=== PATIENT | male | born 1935 | race Caucasian/White ===

== ENCOUNTER 2023-03-09 23:58 | Inpatient (IN) ==
[2023-03-09] MEDS ORDERED: IOPAMIDOL 100 ML BOTTLE IV ONE (23:59)
[2023-03-10 00:51] LABS: POC Calcium, Ionized 1.23 (1.16-1.32); POC Creatinine 1.1 (0.6-1.2)
--- NOTE | 2023-03-10 00:58 | Emergency Department Note ---
HPI General Chief complaint: Abdominal Pain Stated complaint: abdom Time Seen by Provider: 03/10/23 00:00 Source: patient Mode of arrival: ambulatory Limitations: no limitations History of Present Illness HPI Narrative: The patient is an 87-year-old male with a history of CAD, BPH, AAA, HEATHER on CPAP, pancreatitis, appendectomy, right inguinal hernia repair, partial colectomy, SVT, TIAs, GERD, HLD, HTN who presents to the ED with abdominal pain. Pain started at approximately 10 PM this evening when the patient was watching TV. Pain started in the lower abdomen and radiates to the rest of the abdomen and into the chest. He denies any diarrhea but did have difficulty producing a bowel movement last night. He is not currently passing flatus. No nausea or vomiting. No fevers or chills. No urinary complaints. Pain is much better now than it was a few hours ago. Related Data Home Medications Medication Instructions Recorded Confirmed calcium 500 1 tab PO QDAY 04/06/15 03/10/23 glucosamine sulfate 1,000 mg 1,000 mg PO BID 07/05/17 03/10/23 capsule vit C 150 mg-vit E 30 unit-lutein 1 cap PO QDAY 06/24/18 03/10/23 5 [id number] 3 150 mg capsule (Ocuvite) Previous Rx's Medication Instructions Recorded aspirin 81 mg tablet,delayed 81 mg PO QDAY #1 tab 06/29/20 release hydrochlorothiazide 12.5 mg tablet 12.5 mg PO QAM #90 tabs 09/28/22 simvastatin 20 mg tablet 20 mg PO QPM #90 tabs 09/28/22 metoprolol succinate 25 mg 25 mg PO BID #180 tabs 11/13/22 tablet,extended release 24 hr clopidogrel 75 mg tablet 75 mg PO QDAY #90 tabs 11/27/22 losartan 50 mg tablet See Rx Instructions .Route 11/27/22 .COMPLEX #180 tabs Allergies Allergy/AdvReac Type Severity Reaction Status Date / Time No Known Drug Allergies Allergy Verified 12/06/22 10:17 Review of Systems ROS ROS Narrative: Narrative: All systems ED: reviewed and negative except as stated. PFSH Narrative Patient History Narrative: Narrative: Medical/Surgical/Family History All Active Problems (Updated 03/10/23 @ 04:07 by John Burris MD) SBO (small bowel obstruction) (Acute) Localized swelling, mass and lump, left lower limb (Acute) Viral syndrome (Acute) AAA (abdominal aortic aneurysm) (Acute) HEATHER on CPAP (Acute) HEATHER (obstructive sleep apnea) (Chronic) Daytime hypersomnia (Acute) Annual physical exam (Acute) Medicare annual wellness visit, initial (Acute) H/O prosthetic heart valve (Chronic) TIA (transient ischemic attack) (Acute) Degeneration, intervertebral disc, cervicothoracic (Acute) Dyspnea on exertion (Chronic) Dizziness (Chronic) SVT (supraventricular tachycardia) (Acute) History of transurethral resection of prostate (Acute) History of repair of rotator cuff (Acute) History of lumbar discectomy (Acute) History of inguinal hernia repair (Acute) History of colon resection (Acute) History of appendectomy (Acute) Varicose veins of lower extremities with ulcer (Acute) Closed tibial fracture (Acute) Closed fracture sternum (Acute) Closed fracture of patella (Acute) Pancreatitis (Acute) Osteoarthritis (Acute) Meniere's disease (Acute) Hypertension, essential (Acute) Hyperlipidemia (Acute) Hernia, inguinal, unilateral (Acute) Gastroesophageal reflux (Acute) Diverticulosis of colon (Acute) History of colonic polyps (Acute) BPH without obstruction/lower urinary tract symptoms (Acute) Aortic stenosis (Acute) Medical History AAA (abdominal aortic aneurysm) Annual physical exam Aortic stenosis Mild BPH without obstruction/lower urinary tract symptoms Closed fracture of patella R Closed fracture sternum Closed tibial fracture L tibial plateau Daytime hypersomnia Diverticulosis of colon Dizziness Dyspnea on exertion Gastroesophageal reflux Hernia, inguinal, unilateral History of colonic polyps Hyperlipidemia Hypertension, essential Borderline Medicare annual wellness visit, initial Meniere's disease HEATHER on CPAP Osteoarthritis Pancreatitis SVT (supraventricular tachycardia) TIA (transient ischemic attack) Varicose veins of lower extremities with ulcer Viral syndrome Surgical History H/O prosthetic heart valve History of aortic valve replacement (03/29/16) History of appendectomy History of colon resection laproscopic sigmoid colectomy for recurring diverticulitis History of inguinal hernia repair R inguinal with mesh History of lumbar discectomy History of repair of rotator cuff History of transurethral resection of prostate Family History Father , at 59y Atherosclerosis of coronary artery Mother , at 98 of old age Atherosclerosis of coronary artery Unknown Essential hypertension Social History Smoking Status: Former smoker Alcohol Intake Frequency: 0-2 drinks per day Substance Use: does not use Exam Narrative Narrative: Constitutional: Well-nourished, well-developed. No acute distress. HEENT: Normocephalic. Atraumatic. EOMI. Conjunctive are clear bilaterally. Cardiovascular: Regular rate and rhythm. 2/6 systolic murmur best appreciated over the aortic window. Pulmonary: No increased work of breathing. Lung sounds clear to auscultation bilaterally. No wheezing, rales, or rhonchi. Abdomen: Soft, nondistended. TTP in the left lower quadrant. Positive guarding. No HSM. Very diminished bowel sounds throughout. Musculoskeletal: Normal muscular development. No obvious deformities. No lower extremity edema. Skin: Warm, dry. No rash. Neurologic: Awake, alert, and oriented. Motor function grossly intact. Afocal. General Limitations: no limitations Course Course Course Narrative: The patient is HD stable. He is nontoxic-appearing. Bowel sounds are signifi cantly diminished throughout. Last BM was last night and patient reports quite a bit of straining with BM. He denies any history of SBO with no does have dilated loops of small bowel within the left hemiabdomen predominant within the left upper quadrant with gradual transition to normal caliber along the distal jejunum suggesting early small bowel obstruction possibly secondary to internal hernia. Labs reviewed and are largely unremarkable. WBC and lactic acid are WNL. LFTs WNL. Urine dip negative. Patient was given morphine for pain. I am told we do not have the nursing staff to accept a new patient at this time and patient will thus board in the emergency room until shift change at 6 AM at which time I will touch base with the on-call surgeon to see if we can get patient admitted. He was started on maintenance fluids. I will hold off on inserting NG tube at this time. Update 0620 hrs.: Patient is reporting worsening pain. On reexamination he is diaphoretic and appears more uncomfortable. He reports worsening pain in the upper abdomen now. He had an episode where he felt like he was going to throw up and started dry heaving. He was given another 4 mg Zofran and 0.5 mg Dilaudid. Case was discussed with Dr. Mendes, on-call general surgery who saw the patient here in the ER and will take the patient to the OR. Consultations Consultation #1: Dr. Mendes, on-call for general surgery Time: 06:20 Vital Signs Vital signs: Vital Signs Temperature 97.5 F 03/09/23 23:58 Pulse Rate 58 L 03/09/23 23:58 Respiratory Rate 18 03/09/23 23:58 Blood Pressure 169/81 03/09/23 23:58 Pulse Oximetry (%) 98 03/09/23 23:58 Oxygen Delivery Method Room Air 03/09/23 23:58 Temperature 97.5 F 03/09/23 23:58 Pulse Rate 54 L 03/10/23 07:27 Respiratory Rate 13 03/10/23 07:27 Blood Pressure 139/74 03/10/23 07:27 Pulse Oximetry (%) 99 03/10/23 07:27 Oxygen Delivery Method Nasal Cannula 03/10/23 07:27 Oxygen Flow Rate (L/min) 2 03/10/23 07:27 [facility] MDM Narrative Medical decision making narrative: Narrative: Differential Diagnosis Differential Diagnosis: Diverticulitis, kidney stone, mesenteric ischemia, pancreatitis, SBO Medical Records Medical records reviewed: Yes I reviewed the patient's medical records. Lab Data Lab results reviewed: Yes I reviewed the patient's lab results. 03/10/23 00:34 Labs: Lab Results 03/10/23 03/10/23 03/10/23 Range/Units 00:34 00:34 00:37 WBC 6.5 (4.5-11.0) K/mcL RBC 4.15 L (4.63-6.08) M/mcL Hgb 13.1 L (13.7-17.5) g/dL Hct 37.8 L (40.1-51.0) % POC Hct 40.0 L (41-55) MCV 91.1 (80.0-100.0) fL MCH 31.6 (26.0-34.0) pg MCHC 34.7 (31.0-36.0) g/dL RDW 12.6 (11.5-14.5) % Plt Count 179 (140-440) K/mcL MPV 10.5 (8.8-12.5) fL Immature Gran % (Auto) 0.2 (0.0-0.5) % Neut % (Auto) 50.6 (38.0-78.0) % Lymph % (Auto) 22.6 (15.5-49.0) % [place] % (Auto) 12.2 H (1.0-12.0) % Eos % (Auto) 13.8 H (0.0-7.0) % Baso % (Auto) 0.6 (0.0-2.0) % Lymph # (Auto) 1.48 L (1.50-4.80) K/mcL [place] # (Auto) 0.80 (0.10-0.90) K/mcL Eos # (Auto) 0.90 H (0.00-0.70) K/mcL Baso # (Auto) 0.04 (0.00-0.30) K/mcL Immature Gran # 0.01 (0.00-0.05) K/mcl Absolute Neutrophils 3.31 (1.80-8.00) K/mcL POC VBG pH (7.32-7.42) POC VBG pCO2 at Temp (41-51) POC VBG pO2 (25-40) POC VBG HCO3 (24-28) POC VBG Total CO2 (25-29) POC Venous O2 Sat (40-70) POC VBG Base Excess (-2-2) VBG Lactic Acid (0.5-2) POC Sodium 140 (133-145) POC Potassium 4.0 (3.3-5.1) POC Chloride 104 (96-108) POC Total CO2 27.0 (22-30) POC BUN 22 H (6-20) POC Creatinine 1.1 (0.6-1.2) POC Glucose 101 (70-105) POC WB Ioniz Calcium 1.23 (1.16-1.32) Total Bilirubin 0.3 (0.1-1.0) mg/dL Direct Bilirubin < 0.2 (0-0.3) mg/dL AST 22 (<40) U/L ALT 17 (<40) U/L Alkaline Phosphatase 55 (39-117) U/L Total Protein 6.1 (5.9-8.4) gm/dL Albumin 3.9 (3.2-5.2) gm/dL Globulin 2.2 (2.2-3.7) gm/dL Lipase 19 (7-60) U/L POC Troponin I (0.00-0.08) 03/10/23 03/10/23 03/10/23 Range/Units 00:38 00:54 03:51 WBC (4.5-11.0) K/mcL RBC (4.63-6.08) M/mcL Hgb (13.7-17.5) g/dL Hct (40.1-51.0) % POC Hct (41-55) MCV (80.0-100.0) fL MCH (26.0-34.0) pg MCHC (31.0-36.0) g/dL RDW (11.5-14.5) % Plt Count (140-440) K/mcL MPV (8.8-12.5) fL Immature Gran % (Auto) (0.0-0.5) % Neut % (Auto) (38.0-78.0) % Lymph % (Auto) (15.5-49.0) % [place] % (Auto) (1.0-12.0) % Eos % (Auto) (0.0-7.0) % Baso % (Auto) (0.0-2.0) % Lymph # (Auto) (1.50-4.80) K/mcL [place] # (Auto) (0.10-0.90) K/mcL Eos # (Auto) (0.00-0.70) K/mcL Baso # (Auto) (0.00-0.30) K/mcL Immature Gran # (0.00-0.05) K/mcl Absolute Neutrophils (1.80-8.00) K/mcL POC VBG pH 7.38 (7.32-7.42) POC VBG pCO2 at Temp 46.7 (41-51) POC VBG pO2 42 H (25-40) POC VBG HCO3 27.7 (24-28) POC VBG Total CO2 29.0 (25-29) POC Venous O2 Sat 76.0 H (40-70) POC VBG Base Excess 3.0 H (-2-2) VBG Lactic Acid 0.6 (0.5-2) POC Sodium (133-145) POC Potassium (3.3-5.1) POC Chloride (96-108) POC Total CO2 (22-30) POC BUN (6-20) POC Creatinine 1.1 (0.6-1.2) POC Glucose (70-105) POC WB Ioniz Calcium (1.16-1.32) Total Bilirubin (0.1-1.0) mg/dL Direct Bilirubin (0-0.3) mg/dL AST (<40) U/L ALT (<40) U/L Alkaline Phosphatase (39-117) U/L Total Protein (5.9-8.4) gm/dL Albumin (3.2-5.2) gm/dL Globulin (2.2-3.7) gm/dL Lipase (7-60) U/L POC Troponin I < 0.02 (0.00-0.08) Radiology Data Radiology results reviewed: Yes I reviewed the patient's radiology results. Radiology results narrative: See ED course above EKG Data EKG #1: EKG attestation: Yes I reviewed and interpreted this EKG. EKG results narrative: Sinus rhythm. First-degree AV block. Left anterior fascicular block. No ST elevation or depression. Normal QRS. Normal T waves. Discharge Plan Patient/Caregiver Discharge Instructions Pt seen by SEED TECHNICIAN/PA only: No Clinical Impression: SBO (small bowel obstruction) Patient Disposition: Xfer As Outpt/Obs ([facility]) Follow up with: Al Hull MD [Primary Care Provider] - Prescriptions: No Action aspirin 81 mg tablet,delayed release (DR/EC) 81 mg PO QDAY Qty: 1 0RF simvastatin 20 mg tablet 20 mg PO QPM Qty: 90 1RF hydrochlorothiazide 12.5 mg tablet 12.5 mg PO QAM Qty: 90 1RF metoprolol succinate 25 mg tablet extended release 24 hr 25 mg PO BID Qty: 180 1RF losartan 50 mg tablet See Rx Instructions .ROUTE .COMPLEX Qty: 180 1RF Dose Instruction: Take 1 tablet by mouth twice daily Rx Instructions: Take 1 tablet by mouth twice daily clopidogrel 75 mg tablet 75 mg PO QDAY Qty: 90 1RF calcium 500 1,000 mg tablet 1 tab PO QDAY Patient Comments: for 90 days glucosamine sulfate 1,000 mg capsule 1,000 mg PO BID Rx Instructions: administer with meals vit C-vit [id number] [Ocuvite] [id number] capsule 1 cap PO QDAY
[2023-03-10 01:10] LABS: Basophils # (Auto) 0.04 K/mcL (0.00-0.30); Basophils % (Auto) 0.6 % (0.0-2.0); Eosinophils % (Auto) 13.8 % (0.0-7.0); Hematocrit 37.8 % (40.1-51.0); Hemoglobin 13.1 g/dL (13.7-17.5); Lymphocytes # (Auto) 1.48 K/mcL (1.50-4.80); Lymphocytes % (Auto) 22.6 % (15.5-49.0); Mean Cell Volume 91.1 fL (80.0-100.0); Mean Corpuscular HGB Conc 34.7 g/dL (31.0-36.0); Mean Platelet Volume 10.5 fL (8.8-12.5); Monocytes % (Auto) 12.2 % (1.0-12.0); Neutrophils % (Auto) 50.6 % (38.0-78.0); Platelet Count 179 K/mcL (140-440); RBC 4.15 M/mcL (4.63-6.08); Red Cell Distribution Width 12.6 % (11.5-14.5); WBC 6.5 K/mcL (4.5-11.0)
[2023-03-10 01:28] LABS: ALT/SGPT 17 U/L (<40); AST/SGOT 22 U/L (<40); Albumin 3.9 gm/dL (3.2-5.2); Alkaline Phosphatase 55 U/L (39-117); Bilirubin,Direct < 0.2 mg/dL (0-0.3); Bilirubin,Total 0.3 mg/dL (0.1-1.0); Globulin 2.2 gm/dL (2.2-3.7)
[2023-03-10] MEDS ORDERED: ONDANSETRON 4 MG/2 ML VIAL IV ONE ×2 (01:35→06:27)
[2023-03-10] MEDS ORDERED: morphine 4 MG/ML VIAL IV ONE ×2 (01:35→03:58)
[2023-03-10] MEDS ORDERED: 0.9 % SODIUM CHLORIDE 1,000 ML IV ONE (03:59)
[2023-03-10] MEDS ORDERED: HYDROmorphone 0.5 MG/0.5 ML SYRINGE IV ONE (06:27)
--- NOTE | 2023-03-10 07:11 | Cat Scan Report ---
CLINICAL INFORMATION: Left lower quadrant pain COMPARISON: Abdomen CT 08/01/2010. TECHNIQUE: Following enteric contrast, 80 cc of Isovue-370 were injected intravenously, and 60 seconds later, 0.625 mm helical slices were obtained from the mid heart through the subtrochanteric regions. Following reconstruction, 2.5 mm sagittal, coronal and axial reformatted images were processed and reviewed at bone, lung and soft tissue windows. Five minutes later, 0.625 mm helical slices were obtained from the mid heart through the kidneys and viewed at soft tissue windows.The exam was performed using radiation dose optimization techniques including, but not limited to, automated exposure control, adjustment of the mA and/or kV according to patient size and use of iterative reconstruction technique. FINDINGS: The lung bases are clear. No effusions. The visualized heart is grossly normal in size. The leak that Abdominal images show two tiny stones in the gallbladder less than 3 mm. Gallbladder and bile ducts are, otherwise, normal: CBD is 5 mm. The liver, adrenal glands, spleen, and pancreas are normal in size and configuration without focal lesion. Mild ectasia of the infrarenal abdominal aorta noted 2.4 cm in diameter. There has been slight progression from previous study. Aortic branches contain atherosclerotic plaque but no stenoses. Multiple parapelvic cysts are seen in both kidneys with a few scattered parenchymal cysts which are unchanged at 2010 exam. No significant renal abnormality. There is no free air, free fluid or adenopathy. Pelvic images show normal urinary bladder. Prostate is mildly enlarged spanning 4.8 cm. There are scattered sigmoid diverticuli. Surgical anastomotic clips present in the mid sigmoid colon from prior partial sigmoid colectomy. Remaining lumbar bowel is unremarkable. The appendix is surgically absent. A 19 mm periampullary diverticulum projects from the medial wall of the descending duodenum. Multiple loops of mildly dilated jejunum are seen in the left abdomen with a transition point in the mid abdomen best seen on coronal images 68 and sagittal image 120. There are likely adhesions or strictures in this region. The distal small bowel is decompressed. The remainder of the small bowel and stomach are grossly normal. A 10 cm region of edema in the central mesentery upper abdomen is compatible with panniculitis. This is new from the previous exam. Bone windows show moderate degeneration in the lumbar spine which shows modest progression from previous exam IMPRESSION: Partial small bowel obstruction of the mid jejunum due to adhesions or strictures. It is located in the left mid abdomen 10 cm region of panniculitis in the posterior central mesenteric fat of the upper abdomen. 2 cm periampullary diverticulum Sigmoid diverticulosis.. Parapelvic cysts in the kidneys-stable. Cholelithiasis. Interpreted and Authenticated by: Juan R Romano 03/10/23
--- NOTE | 2023-03-10 07:25 | General Surg History&Physical ---
HPI History of Present Illness Patient information: Note initiated : 03/10/23 at 7:20 am Service Date, if different from initiated Date: [] Patient: Cathie Hanson a 87 y/o M admitted on for abdom. Chief Complaint: [] Chief complaint: Abdominal pain History of present illness: Mr. Hanson is a 87 year old M with a significant past medical and surgical history of a heart valve replacement in 2016, patient is currently being followed by cardiology and family practice and his cardiac status has been stable since. He has obstructive sleep apnea, he requires CPAP occasionally but otherwise does well. He has a history of an open appendectomy and a laparoscopic assisted sigmoid colectomy done many years ago at [place] He presents with a 1 day history of abdominal pain, came on suddenly, is not ass ociated with nausea emesis, fevers chills or constipation. He came into the emergency room where a CT scan was performed. CT scan is significant for early small bowel obstruction, likely due to an internal hernia with bowel slipping under the descending colon causing early obstruction. He has no signs of perforation at this time. His white count is normal, his lactate is normal and his kidney function tests are within normal limits. Review of Systems Review of systems: All systems are reviewed, negative other than above PFSH PFSH All Active Problems (Updated 03/10/23 @ 04:07 by John Burris MD) SBO (small bowel obstruction) (Acute) Localized swelling, mass and lump, left lower limb (Acute) Viral syndrome (Acute) AAA (abdominal aortic aneurysm) (Acute) HEATHER on CPAP (Acute) HEATHER (obstructive sleep apnea) (Chronic) Daytime hypersomnia (Acute) Annual physical exam (Acute) Medicare annual wellness visit, initial (Acute) H/O prosthetic heart valve (Chronic) TIA (transient ischemic attack) (Acute) Degeneration, intervertebral disc, cervicothoracic (Acute) Dyspnea on exertion (Chronic) Dizziness (Chronic) SVT (supraventricular tachycardia) (Acute) History of transurethral resection of prostate (Acute) History of repair of rotator cuff (Acute) History of lumbar discectomy (Acute) History of inguinal hernia repair (Acute) History of colon resection (Acute) History of appendectomy (Acute) Varicose veins of lower extremities with ulcer (Acute) Closed tibial fracture (Acute) Closed fracture sternum (Acute) Closed fracture of patella (Acute) Pancreatitis (Acute) Osteoarthritis (Acute) Meniere's disease (Acute) Hypertension, essential (Acute) Hyperlipidemia (Acute) Hernia, inguinal, unilateral (Acute) Gastroesophageal reflux (Acute) Diverticulosis of colon (Acute) History of colonic polyps (Acute) BPH without obstruction/lower urinary tract symptoms (Acute) Aortic stenosis (Acute) Medical History AAA (abdominal aortic aneurysm) Annual physical exam Aortic stenosis Mild BPH without obstruction/lower urinary tract symptoms Closed fracture of patella R Closed fracture sternum Closed tibial fracture L tibial plateau Daytime hypersomnia Diverticulosis of colon Dizziness Dyspnea on exertion Gastroesophageal reflux Hernia, inguinal, unilateral History of colonic polyps Hyperlipidemia Hypertension, essential Borderline Medicare annual wellness visit, initial Meniere's disease HEATHER on CPAP Osteoarthritis Pancreatitis SVT (supraventricular tachycardia) TIA (transient ischemic attack) Varicose veins of lower extremities with ulcer Viral syndrome Surgical History H/O prosthetic heart valve History of aortic valve replacement (03/29/16) History of appendectomy History of colon resection laproscopic sigmoid colectomy for recurring diverticulitis History of inguinal hernia repair R inguinal with mesh History of lumbar discectomy History of repair of rotator cuff History of transurethral resection of prostate Family History Father , at 59y Atherosclerosis of coronary artery Mother , at 98 of old age Atherosclerosis of coronary artery Unknown Essential hypertension Social History marital status: education level: high school occupational status: retired other: 4 children/ggc smoking status: Former smoker quit date: 10/14/15 pack-years: 60 alcohol intake frequency: 0-2 drinks per day substance use type: does not use MEDS/ALLERGIES Home Medications and Allergies Home Medications Medication Instructions Recorded Confirmed Type calcium 500 1 tab PO QDAY 04/06/15 03/10/23 History glucosamine sulfate 1,000 mg 1,000 mg PO BID 07/05/17 03/10/23 History capsule vit C 150 mg-vit E 30 unit-lutein 1 cap PO QDAY 06/24/18 03/10/23 History 5 he-ozbydnai-hlebi 3 150 mg capsule (Ocuvite) aspirin 81 mg tablet,delayed 81 mg PO QDAY #1 tab 06/29/20 03/10/23 Rx release hydrochlorothiazide 12.5 mg tablet 12.5 mg PO QAM #90 tabs 09/28/22 03/10/23 Rx simvastatin 20 mg tablet 20 mg PO QPM #90 tabs 09/28/22 03/10/23 Rx metoprolol succinate 25 mg 25 mg PO BID #180 tabs 11/13/22 03/10/23 Rx tablet,extended release 24 hr clopidogrel 75 mg tablet 75 mg PO QDAY #90 tabs 11/27/22 03/10/23 Rx losartan 50 mg tablet See Rx Instructions .Route 11/27/22 03/10/23 Rx .COMPLEX #180 tabs Allergies Allergy/AdvReac Type Severity Reaction Status Date / Time No Known Drug Allergies Allergy Verified 12/06/22 10:17 Physical Examination Vital Signs Vital signs: Temp Pulse Resp BP Pulse Ox O2 Del Method 97.5 F 51 L 13 121/68 96 Room Air 03/09/23 23:58 03/10/23 07:07 03/10/23 07:07 03/10/23 07:07 03/10/23 07:07 03/09/23 23:58 General physical appearance General physical exam: well developed, well nourished and no distress Eyes Eye exam: PERRL and normal ocular movement ENT ENT exam: normal pinna, normal nares, normal mucosa, no hearing loss and no congestion Head Head exam IM: Present atraumatic and normocephalic Neck Neck exam: no masses, no bruits, trachea midline, no lymphadenopathy and no venous distension Cardiovascular Cardiovascular exam IM: Present normal rate and rhythm Respiratory Respiratory exam: normal expansion, normal respiratory effort, clear to percussion and clear to auscultation Abdomen Abdomen: Present soft, non tender, bowel sounds, surgical scars (Right lower quadrant vertical incision, multiple laparoscopic incisions) and distended; Absent guarding, rigid or rebound Hernia: Present none Genitourinary Genitourinary (Male): Present normal penis with no external lesions Rectum Rectum: Present normal sphincter tone, no hemorrhoids, no tenderness, no masses and no bleeding Integumentary Integumentary: Present no rash, no growths and no abnormal pigmentation Neurologic Neurologic: Present normal coordination and normal sensation Musculoskeletal Musculoskeletal: Present normal gait and normal posture Psychiatric Psychiatric: Present oriented to time, oriented to person, oriented to place, speech is normal and memory intact Results Labs 03/10/23 00:34 Labs: Abnormal lab results 03/10/23 03/10/23 03/10/23 Range/Units 00:34 00:37 03:51 RBC 4.15 L (4.63-6.08) M/mcL Hgb 13.1 L (13.7-17.5) g/dL Hct 37.8 L (40.1-51.0) % POC Hct 40.0 L (41-55) Sabine % (Auto) 12.2 H (1.0-12.0) % Eos % (Auto) 13.8 H (0.0-7.0) % Lymph # (Auto) 1.48 L (1.50-4.80) K/mcL Eos # (Auto) 0.90 H (0.00-0.70) K/mcL POC VBG pO2 42 H (25-40) POC Venous O2 Sat 76.0 H (40-70) POC VBG Base Excess 3.0 H (-2-2) POC BUN 22 H (6-20) Diabetes panel 03/10/23 Range/Units 00:34 AST 22 (<40) U/L ALT 17 (<40) U/L Alkaline Phosphatase 55 (39-117) U/L Total Protein 6.1 (5.9-8.4) gm/dL Albumin 3.9 (3.2-5.2) gm/dL Calcium panel 03/10/23 Range/Units 00:34 Albumin 3.9 (3.2-5.2) gm/dL Adrenal panel 03/10/23 Range/Units 00:34 Total Bilirubin 0.3 (0.1-1.0) mg/dL AST 22 (<40) U/L ALT 17 (<40) U/L Alkaline Phosphatase 55 (39-117) U/L Total Protein 6.1 (5.9-8.4) gm/dL Albumin 3.9 (3.2-5.2) gm/dL All other labs normal. Imaging CT scan - abdomen: image reviewed (Small bowel appears to transit posterior to descending colon in the left upper quadrant.) A/P Assessment and plan (1) SBO (small bowel obstruction): Assessment and plan: This is a pleasant 87-year-old gentleman who vents with an early small bowel obstruction likely due to an internal hernia where the small bowel slipped underneath the descending colon secondary to his prior laparoscopic sigmoid colectomy. Long discussion with the patient about risk, benefits, alternatives to conservative versus surgical intervention. Given that the patient is on Plavix surgical invention has higher risk at this time however with an internal hernia the risk of waiting for his Plavix to reverse puts him at increased risk of bowel ischemia perforation and . He verbalizes understanding of this, all of his questions are answered and he desires to proceed with surgical intervention in the next available OR time. Plan: Laparoscopic exploration, possible open, possible bowel resection. We will admit to the hospital, n.p.o. at this time. Status: Acute Time Spent With Patient Time: Total time spent is greater than 50% in coordination of care (as documented) at patient's floor/unit and/or counseling patient:
[2023-03-10] MEDS ORDERED: ceFAZolin 2 GM in DEXTROSE 5% IN WATER 50 ML IV SCH (08:15)
[2023-03-10] MEDS ORDERED: ONDANSETRON 4 MG/2 ML VIAL ONE (08:34)
[2023-03-10] MEDS ORDERED: KETAMINE 50 MG/ML Syringe (ANEST) IV ONE (08:34)
[2023-03-10] MEDS ORDERED: MAGNESIUM SULFATE 2 GM/50 ML BAG IV ONE (08:34)
[2023-03-10] MEDS ORDERED: PROPOFOL 200 MG/20 ML VIAL IV ONE (08:34)
[2023-03-10] MEDS ORDERED: LIDOCAINE HCL/PF 100 MG/5 ML SYRINGE IV ONE (08:34)
[2023-03-10] MEDS ORDERED: ROCURONIUM 10 MG/ML ML IV ONE (08:34)
[2023-03-10] MEDS ORDERED: SUCCINYLCHOLINE 20 MG/ML ML IV ONE (08:34)
[2023-03-10] MEDS ORDERED: fentaNYL 100 MCG/2 ML VIAL IV ONE (08:34)
[2023-03-10] MEDS ORDERED: SUGAMMADEX SODIUM 200 MG/2 ML VIAL IV ONE (08:34)
[2023-03-10] MEDS ORDERED: DEXAMETHASONE 10 MG/ML VIAL ONE (08:34)
[2023-03-10] MEDS ORDERED: GLYCOPYRROLATE 0.2 MG/ML VIAL IV ONE (08:34)
[2023-03-10] MEDS ORDERED: ePHEDrine 50 MG/5 ML SYRINGE (ANEST) IV ONE (08:34)
[2023-03-10] MEDS ORDERED: LIDOCAINE W/EPI 1% 20 ML VIAL IJ ONE (09:03)
[2023-03-10] MEDS ORDERED: BUPIVACAINE 0.5% 50 ML VIAL IJ ONE (09:03)
[2023-03-10] MEDS ORDERED: METHOCARBAMOL 1,000 MG/10 ML VIAL IV PRN (09:11)
[2023-03-10] MEDS ORDERED: LABETALOL 5 MG/ML ML IV PRN (09:11)
[2023-03-10] MEDS ORDERED: LACTATED RINGERS 250 ML IV PRN (09:11)
[2023-03-10] MEDS ORDERED: fentaNYL 100 MCG/2 ML VIAL IV PRN (09:11)
[2023-03-10] MEDS ORDERED: ONDANSETRON 4 MG/2 ML VIAL IV PRN (09:11)
[2023-03-10] MEDS ORDERED: BENZOCAINE/MENTHOL 1 LOZENGE PO PRN (09:11)
[2023-03-10] MEDS ORDERED: IPRATROPIUM/ALBUTEROL 3 ML AMPUL.NEB NEB PRN (09:11)
[2023-03-10] MEDS ORDERED: NALOXONE HCL 0.4 MG/ML VIAL IV PRN (09:11)
[2023-03-10] MEDS ORDERED: ACETAMINOPHEN 1,000 MG/100 ML BAG IV ONE (09:11)
[2023-03-10] MEDS ORDERED: LACTATED RINGERS 1,000 ML IV SCH (09:15)
[2023-03-10] MEDS ORDERED: IBUPROFEN 600 MG TABLET PO PRN (09:17)
[2023-03-10] MEDS ORDERED: oxyCODONE IR 5 MG TABLET PO PRN (09:17)
[2023-03-10] MEDS ORDERED: HYDROmorphone 0.5 MG/0.5 ML SYRINGE IV PRN (09:17)
--- NOTE | 2023-03-10 09:25 | Operative Note ---
Brief Operative Note Date of procedure: 03/10/23 Pre-op diagnosis: Small bowel obstruction Post-op diagnosis: other (Small bowel obstruction due to internal hernia underneath descending colon) Procedure: Laparoscopic exploration with reduction of internal hernia Grafts/Implants: No Anesthesia: GETA Findings: Internal hernia underneath descending colon Complications: none Surgeon: Satya Mendes Estimated blood loss (cc): 25 Specimens Removed/Pathology: none sent Condition: stable Disposition: PACU Operative Note Operative Note: After all risk benefits and alternatives to the procedure were discussed with the patient at length he verbalized understanding and desire to continue with the procedure. Patient was taken main operating placed supine operative table. General anesthesia was induced over endotracheal tube. Patient's prepped and draped in the standard sterile surgical fashion. Surgical timeout was taken verify patient and procedure being performed. 1% lidocaine half percent Marcaine was used for local anesthesia. A varies needle was inserted into the right upper quadrant and the abdominal cavity was insufflated with carbon dioxide in standard fashion. The abdominal cavity was then entered under direct vision using a 5 mm Optiview trocar through a right upper quadrant incision. Visual inspection revealed no injuries and the varies needle was removed under direct vision. 2 additional right-sided 5 mm trocars were then placed under direct vision. Abdominal expiration showed dilated loop a of small bowel which was lateral to the descending colon, the bowel was then ran from the ligament of Treitz down to a loop that was transversing behind the ascending colon, the small bowel was carefully reduced out of the internal hernia and the descending colon was replaced back into the left side of the abdomen into the left paracolic gutter. There was small amount of translocate of fluid this was suctioned free from the abdominal cavity. The small bowel was then ran from the ligament of Treitz down to the terminal ileum and no obvious injuries were identified. There was no evidence of perforation, complete ischemia or other injuries to the small bowel. The small bowel was placed back into the anatomical position. The CO2 and trocars were then removed under direct vision. Trocar sites were inspected for hemostasis trocar incisions were closed with interrupted 4-0 Monocryl sutures and skin glue dressings were applied. Patient was then awakened from anesthesia transferred postanesthesia care unit awake alert in good condition.
[2023-03-10] MEDS: LEVOFLOXACIN 750 MG/150 ML BAG IV SCH (12:02)
[2023-03-10] MEDS: LACTATED RINGERS 1,000 ML IV SCH ×3 (12:35→23:52)
--- NOTE | 2023-03-10 13:28 | XRay Report ---
CLINICAL INFORMATION: Preop COMPARISON: 12/03/2019. TECHNIQUE: Portable FINDINGS: Sternotomy changes again noted. The heart is borderline enlarged. Mediastinum and pulmonary vessels are normal. Minor bibasilar atelectasis. No effusions. IMPRESSION: Borderline cardiomegaly and minor bibasilar atelectasis. Interpreted and Authenticated by: Juan R Romano 03/10/23
[2023-03-10] MEDS ORDERED: ACETAMINOPHEN 325 MG TABLET PO PRN (16:00)
[2023-03-11 06:55] LABS: Basophils # (Auto) 0.01 K/mcL (0.00-0.30); Basophils % (Auto) 0.1 % (0.0-2.0); Eosinophils # (Auto) 0 K/mcL (0.00-0.70); Eosinophils % (Auto) 0 % (0.0-7.0); Lymphocytes # (Auto) 1.19 K/mcL (1.50-4.80); Lymphocytes % (Auto) 7.7 % (15.5-49.0); Mean Corpuscular HGB Conc 33.3 g/dL (31.0-36.0); Mean Platelet Volume 10.9 fL (8.8-12.5); Monocytes # (Auto) 1.19 K/mcL (0.10-0.90); Monocytes % (Auto) 7.7 % (1.0-12.0); Neutrophils % (Auto) 84.1 % (38.0-78.0); Platelet Count 177 K/mcL (140-440); RBC 4.15 M/mcL (4.63-6.08); WBC 15.4 K/mcL (4.5-11.0)
[2023-03-11 07:17] LABS: Blood Urea Nitrogen 18 mg/dL (8-23); Calcium 9.4 mg/dL (8.6-10.4); Carbon Dioxide 22 mmol/L (22-30); Chloride 101 mmol/L (96-108); Glomerular Filtration Rate 79; Glucose 118 mg/dL (70-105)
[2023-03-11] MEDS: LEVOFLOXACIN 750 MG/150 ML BAG IV SCH (09:29)
--- NOTE | 2023-03-11 09:47 | Discharge Summary ---
Discharge Provider Provider IMPORTANT FOLLOW-UP INFORMATION FOR PCP: Patient information: Note initiated : 03/11/23 at 9:44 am Service Date, if different from initiated Date: [] Patient: Cathie Hanson 87 y/o M admitted on 03/10/23 for abdom. Chief Complaint: [] Date of admission: 03/10/23 08:12 Discharge date: 03/11/23 Primary care physician: Al Hull MD Consults: 03/10/23 Consult to Physician [CONS] Stat Comment: Consulting Provider: Satya Mendes Reason For Exam: Physician to Consult COURSE Hospital Course Hospital course: Patient is admitted with a internal hernia causing a closed-loop small bowel obstruction. Patient underwent a laparoscopic-assisted reduction of internal hernia. Postop he is done very well, has return of bowel function, is passing gas, tolerating a diet and is ambulatory with minimal amounts of pain. Discharge diagnosis: Status post internal hernia causing small bowel obstruction Time Spent with Patient Time attestation: Total time spent providing and/or coordinating discharge services: Time spent: Less than 30 minutes Physical Examination Vital Signs Vital signs: Temp Pulse Resp BP Pulse Ox O2 Del Method O2 Flow Rate 97.9 F 66 18 127/73 99 Room Air 0 03/11/23 07:00 03/11/23 07:00 03/11/23 07:00 03/11/23 07:00 03/11/23 07:00 03/11/23 07:00 03/10/23 09:48 Discharge Plan Patient/Caregiver Discharge Instructions Activity: increase activity as tolerated Diet: Regular Diet Activity Restrictions/Additional Instructions: Resume normal activity as tolerated, no weightlifting restrictions. May resume showering starting tonight. Follow-up with me in 2 to 3 weeks. Prescriptions: New acetaminophen 325 mg Tablet 650 mg PO Q6HP PRN (Reason: Per Pain Protocol/Fever > 101) Qty: 90 0RF ibuprofen 600 mg Tablet 600 mg PO QIDP PRN (Reason: Per Pain Protocol/Fever > 101) Qty: 90 0RF oxycodone 5 mg Tablet 5 mg PO Q4HP PRN (Reason: Per Pain Protocol) Qty: 5 0RF amoxicillin-pot clavulanate 875-125 mg tablet 1 tab PO BID Qty: 10 0RF Continued aspirin 81 mg tablet,delayed release (DR/EC) 81 mg PO QDAY Qty: 1 0RF simvastatin 20 mg tablet 20 mg PO QPM Qty: 90 1RF hydrochlorothiazide 12.5 mg tablet 12.5 mg PO QAM Qty: 90 1RF metoprolol succinate 25 mg tablet extended release 24 hr 25 mg PO BID Qty: 180 1RF losartan 50 mg tablet See Rx Instructions .ROUTE .COMPLEX Qty: 180 1RF Dose Instruction: Take 1 tablet by mouth twice daily Rx Instructions: Take 1 tablet by mouth twice daily clopidogrel 75 mg tablet 75 mg PO QDAY Qty: 90 1RF calcium 500 1,000 mg tablet 1 tab PO QDAY Patient Comments: for 90 days glucosamine sulfate 1,000 mg capsule 1,000 mg PO BID Rx Instructions: administer with meals vit C-vit L-wlhpqg-mas-om-3 [Ocuvite] [id number] nm-kjzi-ua-mg capsule 1 cap PO QDAY Follow Up Plan Follow up with: Satya Mendes MD [Physician] - Al Hull MD [Primary Care Provider] - Patient Disposition: Home, Self-Care Discharge Orders: Discharge Order (Routine); Ordered 03/11/23 Ordered By: Satya Mendes Pending Pending Pending: Resuscitation Status Resuscitate (Full Code) Diet Clear Liquid Diet Start Sun Mar 10 918 Levofloxacin (Levaquin) 750 mg in 150 mls @ 100 mls/hr IV Q24H LAURA; Protocol Last Admin: 03/11/23 09:29 Dose: 100 mls/hr Documented By: Infusion: 03/10/23 13:40 Dose: 0 mls/hr Documented By: Admin: 03/10/23 12:02 Dose: 100 mls/hr Documented By: CHRYSTAL Shift Summary 03/11/23 04:56 Shift Summary by Fatuma Zafar Assumed Pt care @ 1830. Pt is pleasant, alert and oriented x 4 and in no apparent signs and symptoms of distress. Pt denies pain, Call light within reach and whiteboard updated. Pt on RA with saturations in the 90's with stable vitals. Pt lap sites x3 are clean, dry and intact. Pt ambulated in room and hallway with one SBA and a steady gait. Pt PIV on LAC is patent infusing LR @ 125 ml/hr and right hand PIV saline locked. Pt had greater than 30 ml/hr urine output with no acute events all night. Initialized on 03/11/23 04:56 - END OF NOTE
--- NOTE | 2023-03-12 12:42 | EKG ---
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
== END 2023-03-11 11:40 | disposition home or self-care (01) | DRG 331 ==
LOC: ED 23:58 → MEDSUR 03-10 08:12
PROVIDERS: ADMIT Surgery; ATTEND Surgery